=== PATIENT | male | born 2005 | race Caucasian/White ===

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

== ENCOUNTER 2024-02-02 12:49 | Outpatient (RCR) | payer MEDICAID, SELFPAY | END 2024-02-07 23:59 | disposition home or self-care (01) | LOC: SST 12:49 | PROVIDERS: PCP Family Medicine; Visit Provider Family Medicine | DX: F84.0 Autistic disorder (principal) | CPT/HCPCS: 92507 ==

== ENCOUNTER 2024-02-08 06:00 | Outpatient (RCR) | payer MEDICAID, SELFPAY | END 2024-03-09 23:59 | disposition home or self-care (01) | LOC: SST 06:00 | PROVIDERS: PCP Family Medicine; Visit Provider Family Medicine | DX: F84.0 Autistic disorder (principal) | CPT/HCPCS: 92507 ==

== ENCOUNTER 2024-03-10 06:00 | Outpatient (RCR) | payer MEDICAID, SELFPAY | END 2024-04-06 23:59 | disposition home or self-care (01) | LOC: SST 06:00 | PROVIDERS: PCP Family Medicine; Visit Provider Family Medicine | DX: F84.0 Autistic disorder (principal) | CPT/HCPCS: 92507 ==

== ENCOUNTER 2024-04-07 06:00 | Outpatient (RCR) | payer MEDICAID, SELFPAY | END 2024-05-07 23:59 | disposition home or self-care (01) | LOC: SST 06:00 | PROVIDERS: PCP Family Medicine; Visit Provider Family Medicine | DX: F84.0 Autistic disorder (principal) | CPT/HCPCS: 92507 ==

== ENCOUNTER 2024-04-07 06:30 | Outpatient (RCR) | payer MEDICAID, SELFPAY | END 2024-05-07 23:59 | disposition home or self-care (01) | LOC: SST 06:30 | PROVIDERS: PCP Family Medicine; Visit Provider Family Medicine | DX: F84.0 Autistic disorder (principal) | CPT/HCPCS: 92523 ==

== ENCOUNTER 2024-05-08 05:00 | Outpatient (RCR) | payer MEDICAID, SELFPAY | END 2024-06-06 23:59 | disposition home or self-care (01) | LOC: SST 05:00 | PROVIDERS: PCP Family Medicine; Visit Provider Family Medicine | DX: F84.0 Autistic disorder (principal) | CPT/HCPCS: 92507 ==

== ENCOUNTER 2024-06-07 05:00 | Outpatient (RCR) | payer MEDICAID, SELFPAY | END 2024-07-07 23:55 | disposition home or self-care (01) | LOC: SST 05:00 | PROVIDERS: PCP Family Medicine; Visit Provider Family Medicine | DX: F84.0 Autistic disorder (principal) | CPT/HCPCS: 92507 ==

== ENCOUNTER 2024-07-08 05:00 | Outpatient (RCR) | payer MEDICAID, SELFPAY | END 2024-08-06 23:59 | disposition home or self-care (01) | LOC: SST 05:00 | PROVIDERS: PCP Family Medicine; Visit Provider Family Medicine | DX: F80.9 Developmental disorder of speech and language, unspecified (principal) | CPT/HCPCS: 92507 ==

== ENCOUNTER 2024-08-07 05:00 | Outpatient (RCR) | payer MEDICAID, SELFPAY | END 2024-09-06 23:59 | disposition home or self-care (01) | LOC: SST 05:00 | PROVIDERS: Visit Provider Family Medicine | DX: F80.9 Developmental disorder of speech and language, unspecified (principal) | CPT/HCPCS: 92507 ==

== ENCOUNTER 2024-08-14 13:53 | Emergency (ER) | payer MEDICAID, SELFPAY ==
--- OUTSIDE RECORDS SUMMARY | 2024-08-14 14:00 | XMS_ITS | Encounter Summary ---
Author Organization [facility] Address [address] [place] [address] Care Team Providers Care Advertising Internship Name Role Phone Chika Miller MD Primary Care Provider +1- [phone] Encounter Details Date Type Department Care Team (Latest Contact Info) Description 09/05/2006 Outpatient Historical [facility] [address] [place] [address] [place] [address] [facility] [address] [place] [address] Unspecified Delay in Development (Primary Dx) Social History Tobacco Use Types Packs/Day Years Used Date Smoking Tobacco: Never Assessed Sex and Gender Information Value Date Recorded Sex Assigned at Not on file Legal 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
--- OUTSIDE RECORDS SUMMARY | 2024-08-14 14:00 | XMS_ITS | Clinical Summary ---
Author Organization [facility] Address [address] [place] [address] Care Team Providers Care Tare Weigher Name Role Phone Chika Miller MD Primary Care Provider +1- [phone] Allergies No known active allergies Medications polyethylene glycol 3350 (MIRALAX) 17 gram/dose Powder Take 17 Gram by mouth daily Dissolve in 8 ounces of fluid and drink entire liquid . Active montelukast (SINGULAIR) 5 mg Tablet, Chewable Take 5 mg by mouth daily. Active Active Problems Problem Noted Date Diagnosed Date PDD (pervasive developmental disorder) 9 Immunizations Immunization Administration Dates Next Due (M-M-R II/PRIORIX)(12 MO UP) MEASLES, MUMPS AND RUBELLA VIRUS VACCINE, 0.5 ML IM/SUBCUT 10/05/2005 (VARIVAX)(12 MOS UP)VARICELL A VIRUS VACCINE (PF) 0.5 ML, SUB CUT 10/05/2005 Dt Dtp Dtap Vaccine 10/05/2005, 5,2004,2004 HIB, Unspecified Formulation 07/06/2005,11/12/19 05,2004 Hepatitis A Vaccine 01/11/2006,07/06/2005 Hepatitis B Vaccine 01/05/2005, 5,2004,2004 IPV/OPV 01/05/2005,2004,2004 Influenza Seasonal Unspecifi ed Formulation IM 01/11/2006,01/05/2005 Pneumococcal 7-valent conjug ate vaccine IM 07/06/2005,01/05/2005,2004,2004 Family History Medical History Relation Name Comments Depression Father Other Father High Cholesterol Mother Relation Name Status Comments Father Alive Mother Alive Social History Tobacco Use Types Packs/Day Years Used Date Smoking Tobacco: Never Smokeless Tobacco: Never Sex and Gender Information Value Date Recorded Sex Assigned at Not on file Legal Sex Male 3:36 AM CONCERT PIANIST Gender Identity Not on file Sexual Orientation Not on file Last Filed Vital Signs Vital Sign Reading Time Taken Comments Blood Pressure 115/90 01/06/2016 3:06 PM CONCERT PIANIST Pulse 58 01/06/2016 3:06 PM CONCERT PIANIST Temperature 37.2 C (99 F) 03/04/2008 10:58 AM CONCERT PIANIST Respiratory Rate - - Oxygen Saturation - - Inhaled Oxygen Concentration - - Weight 49.4 kg (109 lb) 05/06/2016 11:42 AM CDT Height 154.9 cm (5' 1 ) 05/06/2016 11:42 AM CDT Body Mass Index 20.6 05/06/2016 11:42 AM CDT Plan of Treatment Health Maintenance Due Date Last Done Comments CHLAMYDIA SCREENING (ANNUAL) 11-24 YEARS 07/02/2015 DTAP/TDAP/TD VACCINES (5 - Tdap) 07/02/2015 10/05/2005, 01/05/2005, 2004, Additional history exists HPV VACCINES (1 - Male 3-dos e series) 07/02/2019 INFLUENZA VACCINE (#1) 2024 01/11/2006, 2004 HEPATITIS B VACCINES Completed 01/05/2005, 2004, 2004, Additional history exists Insurance MEDICAID [place] Care Teams Tare Weigher Relationship Specialty Start Date End Date Chika Miller MD [address] [place] [address] PCP - General Family Practice 09/12/15
--- OUTSIDE RECORDS SUMMARY | 2024-08-14 14:00 | XMS_ITS | Encounter Summary ---
Author Organization [facility] Address [address] [place] [address] Care Team Providers Care Pump House Engineer Name Role Phone Chika Miller MD Primary Care Provider +1- [phone] Encounter Details Date Type Department Care Team (Late st Contact Info) Description 07/05/2006 Outpatient Historical [facility] [place] [address] [place] [address] Bessie Toscano MD NO ADDRESS ON FILE Routine Child Health Exam (Primary Dx) Social History Tobacco Use Types Packs/Day Years Used Date Smoking Tobacco: Never Assessed Sex and Gender Information Value Date Recorded Sex Assigned at Not on file Legal Sex Male 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
--- OUTSIDE RECORDS SUMMARY | 2024-08-14 14:00 | XMS_ITS | Encounter Summary ---
Author Organization [facility] Address [address] [place] [address] Care Team Providers Care Kitchenhand Name Role Phone Chika Miller MD Primary Care Provider +1- [phone] Encounter Details Date Type Department Care Team (Late st Contact Info) Description 2004 Outpatient Historical [facility] [place] [address] [place] [address] Bessie Toscano MD NO ADDRESS ON FILE Routine child health exam (Primary Dx); VACCINE DIS COMBINATIONS NEC; VACCINE FOR H FLU TYPE B; VACCINE FOR STREP PNEUMONIAE Social History Tobacco Use Types Packs/Day Years Used Date Smoking Tobacco: Never Assessed Sex and Gender Information Value Date Recorded Sex Assigned at Not on file Legal Sex Male 3:36 AM CHILD CARE CENTER ASSISTANT DIRECTOR Gender Identity Not on file Sexual Orientation Not on file documented as of this encounter Plan of Treatment Not on file documented as of this encounter Visit Diagnoses Diagnosis Routine child health exam- Primary Routine or child health check Need for prophylactic vaccination and inoculation against other combinations of diseases Need for prophylactic vaccination against Hemophilus influenza type B (Hib) Need for prophylactic vaccination against Streptococcus pneumoniae (pneumococcus) Need for prophylactic vaccination against streptococcus pneumoniae (pneumococcus) documented in this encounter Care Teams Kitchenhand Relationship Specialty Start Date End Date Chika Miller MD [address] [place] [address] PCP - General Family Practice 09/12/15 documented as of this encounter
--- OUTSIDE RECORDS SUMMARY | 2024-08-14 14:00 | XMS_ITS | Encounter Summary ---
Author Organization [facility] Address [address] [facility] Attn: Epic Prelude ADT JOSE [place] [address] Care Team Providers Care Partition Setter Name Role Phone Chika Miller MD Primary Care Provider +1- [phone] Encounter Details Date Type Department Care Team (Late st Contact Info) Description 2004 Inpatient Historical Bessie Toscano MD NO ADDRESS ON FILE SINGL BORN IN HOSP-NO C/DELIVERY (Primary Dx) Social History Tobacco Use Types Packs/Day Years Used Date Smoking Tobacco: Never Assessed Sex and Gender Information Value Date Recorded Sex Assigned at Not on file Legal Sex Male 3: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 Gender Identity Not on file Sexual Orientation Not on file documented as of this encounter Plan of Treatment Not on file documented as of this encounter Procedures Procedure Name Priority Date/Time Associated Diagnosis Comments METABOLIC SCREEN Routine 2004 12:58 AM CDT POC GLUCOSE Routine 2004 5:06 PM CDT documented in this encounter Results * METABOLIC SCREEN (2004 12:58 AM CDT) PKU Sent to Reference Lab INTERFACE SYSTEM 2004 12:5 8 AM CDT us Bessie Toscano MD CHEMISTRY ORDERABLES Vannesa l Result INTERFACE SYSTEM Refer to clinic/hospital department * POC GLUCOSE (2004 5:06 PM CDT) GLUCOSE POC 58 50 - 80 mg/dL INTERFACE SYSTEM COMMENT POC Baby 1 Glucose INTERFACE SYSTEM 2004 5:06 PM CDT us Bessie Toscano MD POINT OF CARE TESTING Fin al Result INTERFACE SYSTEM Refer to clinic/hospital department documented in this encounter Visit Diagnoses Diagnosis Single liveborn, born in hospital, delivered without mention of delivery- Primary documented in this encounter Care Teams Partition Setter Relationship Specialty Start Date End Date Chika Miller MD [address] [place] [address] PCP - General Family Practice 09/12/15 documented as of this encounter
--- OUTSIDE RECORDS SUMMARY | 2024-08-14 14:00 | XMS_ITS | Clinical Summary ---
Author Organization [facility] Address [address] [address] [facility] [address] [place]: Epic Prelude ADT [place] [address] Care Team Providers Care Cash Office Worker Name Role Phone Chika Miller MD Primary Care Provider +1- [phone] Allergies No known active allergies Medications polyethylene glycol 3350 (MIRALAX) 17 gram/dose Powder Take 17 Gram by mouth daily Dissolve in 8 ounces of fluid and drink entire liquid . 09/09/2015 Active montelukast (SINGULAIR) 5 mg Tablet, Chewable Take 5 mg by mouth daily. 09/09/2015 Active Active Problems Problem Noted Date Diagnosed [...] Information Value Date Recorded Sex Assigned at Male 12/25/2023 11:01 AM PIPELINE SUPERINTENDENT Legal Sex Male 11:46 AM PIPELINE SUPERINTENDENT Gender Identity Male 12/25/2023 11:01 AM PIPELINE SUPERINTENDENT Sexual Orientation Not on file Last Filed Vital Signs Vital Sign Reading Time Taken Comments Blood Pressure 115/90 01/06/2016 3:06 PM PIPELINE SUPERINTENDENT Pulse 58 01/06/2016 3:06 PM PIPELINE SUPERINTENDENT Temperature - - Respiratory Rate - - Oxygen Saturation - [...] Completed 01/05/2005, 2004, 2004, Additional history exists Care Teams Cash Office Worker Relationship Specialty Start Date End Date Chika Miller MD [address] [place] [address] PCP - General Family Practice 09/12/15
--- OUTSIDE RECORDS SUMMARY | 2024-08-14 14:00 | XMS_ITS | Encounter Summary ---
Author Organization [facility] Address [address] [place] [address] Care Team Providers Care Wind Power Project Manager Name Role Phone Chika Miller MD Primary Care Provider +1- [phone] Encounter Details Date Type Department Care Team (Latest Contact Info) Description 2004 Outpatient Historical [facility] [place] [address] [facility] [address] [place] [address] Tacos Lindsay MD [address] [facility] [address] [place] [address] / JAUND NOS (Primary Dx) Social History Tobacco Use Types Packs/Day Years Used Date Smoking Tobacco: Never Assessed Sex and Gender Information Value Date Recorded Sex Assigned at Not on file Legal Sex 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
--- OUTSIDE RECORDS SUMMARY | 2024-08-14 14:00 | XMS_ITS | Encounter Summary ---
Author Organization [facility] Address [address] [place] [address] Care Team Providers Care Molder Offbearer Name Role Phone Chika Miller MD Primary Care Provider +1- [phone] Encounter Details Date Type Department Care Team (Late st Contact Info) Description 01/11/2006 Outpatient Historical [facility] Pediatrics- [place] [address] [place] [address] Bessie Toscano MD NO ADDRESS ON FILE Routine Child Health Exam (Primary Dx); Unspecified Otitis Media; Vaccine for viral hepatitis; Vaccine for influenza Social History Tobacco Use Types Packs/Day Years Used Date Smoking Tobacco: Never Assessed Sex and Gender Information Value Date Recorded Sex Assigned at Not on file Legal Sex Male 3:36 AM INVENTORY CONTROL SUPERVISOR Gender Identity Not on file Sexual Orientation Not on file documented as of this encounter Plan of Treatment Not on file documented as of this encounter Visit Diagnoses Diagnosis Routine child health exam- Primary Routine or child health check Unspecified otitis media Vaccine for viral hepatitis Need for prophylactic vaccination and inoculation against viral hepatitis Vaccine for influenza Need for prophylactic vaccination and inoculation against influenza documented in this encounter Care Teams Molder Offbearer Relationship Specialty Start Date End Date Chika Miller MD [address] [place] [address] PCP - General Family Practice 09/12/15 documented as of this encounter
--- OUTSIDE RECORDS SUMMARY | 2024-08-14 14:00 | XMS_ITS | Encounter Summary ---
Author Organization [facility] Address [address] [place] [address] Care Team Providers Care Senior Linux Systems Engineer Name Role Phone Chika Miller MD Primary Care Provider +1- [phone] Encounter Details Date Type Department Care Team (Late st Contact Info) Description 07/06/2005 Outpatient Historical [facility] Pediatrics- [place] [address] [place] [address] Bessie Toscano MD NO ADDRESS ON FILE Routine Child Health Exam (Primary Dx); Vaccine for viral hepatitis; Vaccin Hem Influenza B; Vaccin Strep Pneumoniae Social History Tobacco Use Types Packs/Day Years Used Date Smoking Tobacco: Never Assessed Sex and Gender Information Value Date Recorded Sex Assigned at Not on file 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 Gender Identity Not on file Sexual Orientation Not on file documented as of this encounter Plan of Treatment Not on file documented as of this encounter Visit Diagnoses Diagnosis Routine child health exam- Primary Routine or child health check Vaccine for viral hepatitis Need for prophylactic vaccination and inoculation against viral hepatitis Need for prophylactic vaccination against Hemophilus influenza type B (Hib) Need for prophylactic vaccination against Streptococcus pneumoniae (pneumococcus) Need for prophylactic vaccination against streptococcus pneumoniae (pneumococcus) documented in this encounter Care Teams Senior Linux Systems Engineer Relationship Specialty Start Date End Date Chika Miller MD [address] [place] [address] PCP - General Family Practice 09/12/15 documented as of this encounter
--- OUTSIDE RECORDS SUMMARY | 2024-08-14 14:00 | XMS_ITS | Encounter Summary ---
Author Organization [facility] Address [address] [place] [address] Care Team Providers Care Fitness Technician Name Role Phone Chika Miller MD Primary Care Provider +1- [phone] Encounter Details Date Type Department Care Team (Late st Contact Info) Description 01/05/2005 Outpatient Historical [facility] Pediatrics- [place] [address] [place] [address] Bessie Toscano MD NO ADDRESS ON FILE Routine child health exam (Primary Dx); Vaccine for influenza; VACCINE DIS COMBINATIONS NEC; VACCINE FOR STREP PNEUMONIAE Social History Tobacco Use Types Packs/Day Years Used Date Smoking Tobacco: Never Assessed Sex and Gender Information Value Date Recorded Sex Assigned at Not on file 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 Gender Identity Not on file Sexual Orientation Not on file documented as of this encounter Plan of Treatment Not on file documented as of this encounter Visit Diagnoses Diagnosis Routine child health exam- Primary Routine infant or child health check Vaccine for influenza Need for prophylactic vaccination and inoculation against influenza Need for prophylactic vaccination and inoculation against other combinations of diseases Need for prophylactic vaccination against Streptococcus pneumoniae (pneumococcus) Need for prophylactic vaccination against streptococcus pneumoniae (pneumococcus) documented in this encounter Care Teams Fitness Technician Relationship Specialty Start Date End Date Chika Miller MD [address] [place] [address] PCP - General Family Practice 09/12/15 documented as of this encounter
--- OUTSIDE RECORDS SUMMARY | 2024-08-14 14:00 | XMS_ITS | Encounter Summary ---
Author Organization [facility] Address [address] [place] [address] Care Team Providers Care Senior Planner Name Role Phone Chika Miller MD Primary Care Provider +1- [phone] Encounter Details Date Type Department Care Team (Late st Contact Info) Description 2004 Outpatient Historical [facility] Pediatrics- [place] [address] [place] [address] Bessie Toscano MD NO ADDRESS ON FILE Routine child health exam (Primary Dx) Social History Tobacco Use Types Packs/Day Years Used Date Smoking Tobacco: Never Assessed Sex and Gender Information Value Date Recorded Sex Assigned at Not on file 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
--- OUTSIDE RECORDS SUMMARY | 2024-08-14 14:00 | XMS_ITS | Encounter Summary ---
Author Organization [facility] Address [address] [place] [address] Care Team Providers Care Space Buyer Name Role Phone Chika Miller MD Primary Care Provider +1- [phone] Encounter Details Date Type Department Care Team (Latest Contact Info) Description 01/07/2007 Outpatient Historical [facility] Pediatrics- [place] [address] [place] [id number] Genet Armendariz [address] [facility] [address] [place] [address] Unspecified Otitis Media (Primary Dx) Social History Tobacco Use Types Packs/Day Years Used Date Smoking Tobacco: Never Assessed Sex and Gender Information Value Date Recorded Sex Assigned at Not on file 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
--- OUTSIDE RECORDS SUMMARY | 2024-08-14 14:00 | XMS_ITS | Encounter Summary ---
Author Organization [facility] Address [address] [place] [address] Care Team Providers Care Stevedore Hold Name Role Phone Chika Miller MD Primary Care Provider +1- [phone] Encounter Details Date Type Department Care Team (Late st Contact Info) Description 2004 Outpatient Historical [facility] Pediatrics- [place] [address] [place] [address] Bessie Toscano MD NO ADDRESS ON FILE Routine child health exam (Primary Dx); VACCINE DIS COMBINATIONS NEC; VACCINE FOR H FLU TYPE B; VACCINE FOR STREP PNEUMONIAE Social History Tobacco Use Types Packs/Day Years Used Date Smoking Tobacco: Never Assessed Sex and Gender Information Value Date Recorded Sex Assigned at Not on file 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
--- OUTSIDE RECORDS SUMMARY | 2024-08-14 14:00 | XMS_ITS | Encounter Summary ---
Author Organization [facility] Address [address] [place] [address] Care Team Providers Care Parole Officer Name Role Phone Chika Miller MD Primary Care Provider +1- [phone] Encounter Details Date Type Department Care Team (Late st Contact Info) Description 07/12/2006 Outpatient Historical [facility] Pediatrics- [place] [address] [place] [phone] Bessie Toscano MD NO ADDRESS ON FILE Diarrhea (Primary Dx) Social History Tobacco Use Types Packs/Day Years Used Date Smoking Tobacco: Never Assessed Sex and Gender Information Value Date Recorded Sex Assigned at Not on file 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
--- OUTSIDE RECORDS SUMMARY | 2024-08-14 14:00 | XMS_ITS | Encounter Summary ---
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 Gender Identity Not on file Sexual Orientation Not on file documented as of this encounter Plan of Treatment Not on file documented as of this encounter Procedures Procedure Name Priority Date/Time Associated Diagnosis Comments METABOLIC SCREEN Routine 2004 10:04 AM CDT documented in this encounter Results * METABOLIC SCREEN (2004 10:04 AM CDT) PKU Sent to Reference Lab INTERFACE SYSTEM 2004 10:0 4 AM CDT us Bessie Toscano MD CHEMISTRY ORDERABLES Vannesa brown Result INTERFACE SYSTEM Refer to clinic/hospital department documented in this encounter Visit Diagnoses Diagnosis Screening for phenylketonuria (PKU)- Primary documented in this encounter Care Teams Batch And Furnace Manager Relationship Specialty Start Date End Date Chika Miller MD [address] [place] [phone] PCP - General Family Practice 09/12/15 documented as of this encounter
--- OUTSIDE RECORDS SUMMARY | 2024-08-14 14:00 | XMS_ITS | Encounter Summary ---
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
--- OUTSIDE RECORDS SUMMARY | 2024-08-14 14:00 | XMS_ITS | Encounter Summary ---
Author Organization [facility] Address [address] [place] [address] Care Team Providers Care Director Of Integrated Marketing Name Role Phone Chika Miller MD Primary Care Provider +1- [phone] Encounter Details Date Type Department Care Team (Late st Contact Info) Description 11/05/2005 Outpatient Historical [facility] Pediatrics- [place] [address] [place] [address] Bessie Toscano MD NO ADDRESS ON FILE Failure to Thrive (Primary Dx) Social History Tobacco Use Types Packs/Day Years Used Date Smoking Tobacco: Never Assessed Sex and Gender Information Value Date Recorded Sex Assigned at Not on file Legal 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
--- OUTSIDE RECORDS SUMMARY | 2024-08-14 14:00 | XMS_ITS | Encounter Summary ---
Author Organization [facility] Address [address] [place] [address] Care Team Providers Care Call Centre Supervisor Name Role Phone Chika Miller MD Primary Care Provider +1- [phone] Encounter Details Date Type Department Care Team (Late st Contact Info) Description 10/05/2005 Outpatient Historical [facility] Pediatrics- [place] [address] [place] [address] Bessie Toscano MD NO ADDRESS ON FILE Routine Child Health Exam (Primary Dx); Vaccin for Dtp; Rgn-Ignsbg-Kljad-Ru leeanne; Vaccine for Varicella Social History Tobacco Use Types Packs/Day Years Used Date Smoking Tobacco: Never Assessed Sex and Gender Information Value Date Recorded Sex Assigned at Not on file 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 Gender Identity Not on file Sexual Orientation Not on file documented as of this encounter Plan of Treatment Not on file documented as of this encounter Visit Diagnoses Diagnosis Routine child health exam- Primary Routine infant or child health check Need for prophylactic vaccination with combined xvsfzicnor-goeyqow-jxcmropii (DTP) vaccine Need for prophylactic vaccination with uykoeny-krejg-wttlcjx (MMR) vaccine Vaccine for varicella Need for prophylactic vaccination and inoculation against varicella documented in this encounter Care Teams Call Centre Supervisor Relationship Specialty Start Date End Date Chika Miller MD [address] [place] [address] PCP - General Family Practice 09/12/15 documented as of this encounter
--- OUTSIDE RECORDS SUMMARY | 2024-08-14 14:00 | XMS_ITS | Encounter Summary ---
Author Organization [facility] Address [address] [place] [address] Care Team Providers Care Steam Table Associate Name Role Phone Chika Miller MD Primary Care Provider +1- [phone] Encounter Details Date Type Department Care Team (Late st Contact Info) Description 09/13/2006 Outpatient Historical [facility] Pediatrics- [place] [address] [place] [address] Bessie Toscano MD NO ADDRESS ON FILE Diarrhea (Primary Dx); Splenomegaly Social History Tobacco Use Types Packs/Day Years Used Date Smoking Tobacco: Never Assessed Sex and Gender Information Value Date Recorded Sex Assigned at Not on file Legal 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
--- OUTSIDE RECORDS SUMMARY | 2024-08-14 14:00 | XMS_ITS | Encounter Summary ---
Author Organization [facility] Address [address] [place] [address] Care Team Providers Care Mold Engraver Name Role Phone Chika Miller MD Primary Care Provider +1- [phone] Encounter Details Date Type Department Care Team (Late st Contact Info) Description 01/25/2006 Outpatient Historical [facility] Pediatrics- [place] [address] [place] [phone] Bessie Toscano MD NO ADDRESS ON FILE Unspecified Otitis Media (Primary Dx) Social History Tobacco Use Types Packs/Day Years Used Date Smoking Tobacco: Never Assessed Sex and Gender Information Value Date Recorded Sex Assigned at Not on file 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
--- OUTSIDE RECORDS SUMMARY | 2024-08-14 14:00 | XMS_ITS | Encounter Summary ---
Author Organization [facility] Address [address] [place] [address] Care Team Providers Care Superintendent Job Name Role Phone Chika Miller MD Primary Care Provider +1- [phone] Encounter Details Date Type Department Care Team (Late st Contact Info) Description 04/06/2005 Outpatient Historical [facility] Pediatrics- [place] [address] [place] [address] Bessie Toscano MD NO ADDRESS ON FILE Routine child health exam (Primary Dx) Social History Tobacco Use Types Packs/Day Years Used Date Smoking Tobacco: Never Assessed Sex and Gender Information Value Date Recorded Sex Assigned at Not on file 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
[2024-08-14 14:04] VITALS: BP 125/80; PULSE 95; TEMP 36.7; O2SAT 99; BMI 30.1
--- NOTE | 2024-08-14 15:17 | W.ED.ABDPA2 ---
HPI - Abdominal Pain General: Chief Complaint: Abdominal Pain Stated Complaint: abd pain Time Seen by Provider: 08/14/24 15:07 Source: family Mode of arrival: ambulatory Limitations: physical limitation History of Present Illness: Patient is a 19-year-old autistic nonverbal male here with his parents for concern of possible abdominal pain. Mother states they noticed a small episode where the patient seemed to be clutching his abdomen this morning which is abnormal for him. He has not had any more episodes of this behavior. Parents state he is overall acting normally. He ate breakfast and lunch normally. He has not had any vomiting. No fevers. Patient struggles with chronic constipation and does follow-up with a GI specialist in [place]. elicited complaint: abdominal pain (possible?) Pertinent past history: constipation Onset (ago): hour(s) Pain Consistency: other (unknown-pt non verbal) Location: Other (unknown) Associated Symptoms: Reports no associated symptoms and constipation (chronic); Denies fever(s), hematochezia, melena, syncope and vomiting Related Data Home Medications ?Medication ?Instructions ?Recorded ?Confirmed polyethylene glycol 3350 17 PO 02/12/21 10/03/22 gram/dose oral powder (Miralax) montelukast 10 mg tablet 10 mg PO DAILY 10/03/22 10/03/22 (Singulair) Previous Rx's ?Medication ?Instructions ?Recorded diphenhydramine HCl 12.5 mg/5 mL 50 mg (20 mL) PO Q8H PRN itching 10/03/22 oral elixir #500 mL famotidine 40 mg/5 mL (8 mg/mL) 5 ml PO BID 5 days #50 mL 10/03/22 oral suspension prednisolone 15 mg/5 mL oral 60 mg (20 mL) PO DAILY 5 days #100 10/03/22 solution mL Allergies Allergy/AdvReac Type Severity Reaction Status Date / Time No Known Allergies Allergy Verified 08/14/24 14:11 Review of Systems General: Reports: ROS unobtainable due to medical condition, ROS unobtainable due to mental status and Other (answers provided by mother) Const: Denies: fever(s) Card: Denies: edema, swelling of feet/ankles, syncope or pre-syncope Resp: Denies: productive cough, non-productive cough or chest congestion GI: Reports: constipation (chronic); Denies: vomiting, hematochezia or melena : Reports: other (no change in urination) Skin/Breast: Denies: rash Neuro: Reports: other (normal mental status per parents) COUNTS INCLUDE 234 BEDS AT THE [facility] ED PFSH: Medical History Autism Surgical History No history of previous surgery Social History Smoking and tobacco/nicotine status: never used tobacco/nicotine Physical Exam Const: COMMON NORMALS: no acute distress, average body habitus, healthy appearing, alert and well nourished EXAM LIMITATIONS: physical limitations GENERAL APPEARANCE: cooperative HENMT: COMMON NORMALS: normocephalic and atraumatic HEAD & SCALP: normal to inspection, normocephalic and atraumatic Eye: COMMON NORMALS: no scleral icterus Resp: COMMON NORMALS: normal respiratory effort and clear to auscultation bilaterally AUSCULTATION: clear to auscultation bilaterally Cardio: COMMON NORMALS: regular rate and regular rhythm RATE: regular rate RHYTHM: regular rhythm GI: COMMON NORMALS: Normal to inspection, nondistended, normoactive bowel sounds present, Soft to palpation, non-tender (pt does not seemingly grimace or appear to be in discomfort), No hepatosplenomegaly present and no masses INSPECTION: Yes normal to inspection AUSCULTATION: Yes Hypoactive bowel sounds present PALPATION: Yes Soft to palpation and Yes No hepatosplenomegaly present Back/Pelvis: COMMON NORMALS: thoracic and lumbar spine normal to inspection Extremity: GENERAL: Yes normal exam except as noted Neuro: SENSORIUM/ORIENTATION: Yes alert Course Vital Signs: Vital signs: Vital Signs Temperature 98.1 F 08/14/24 14:04 Pulse Rate 72 08/14/24 17:02 Respiratory Rate 18 08/14/24 16:01 Blood Pressure 140/83 08/14/24 16:01 Pulse Oximetry 99 08/14/24 17:02 Oxygen Delivery Me thod Room Air 08/14/24 16:01 MDM - Abdominal Pain Medical Decision Making Patient seemingly has been in no acute distress throughout his emergency department stay. His vital signs are completely normal. Blood work Is completely unremarkable. Abdomen seemingly nontender during palpation. Obviously there are some limitations on his exam as he is nonverbal. Abdominal XR showing prominent constipation. I do not feel he has a surgical abdomen. Parents feel comfortable taking him home with close observation. Return to ED precautions discussed. Medical Records I reviewed the patient's medical records. Lab Data I reviewed the patient's lab results. 08/14/24 15:11 08/14/24 15:11 Labs/Radiology: Radiology Impressions Abdomen X-Ray 08/14/24 15:53 IMPRESSION: Prominent constipation Laboratory Results WBC 8.72 10^3/uL (4.5-13.0) 08/14/24 15:11 RBC 5.05 10^6/uL (3.85-5.65) 08/14/24 15:11 Hgb 15.60 g/dL (13.2-15.6) 08/14/24 15:11 Hct 48.0 % (37-53) 08/14/24 15:11 MCV 95.0 fl (82-101) 08/14/24 15:11 MCH 30.9 pg (27-33) 08/14/24 15:11 MCHC 32.5 g/dL (30-55) 08/14/24 15:11 RDW 13.1 % (12.1-15.1) 08/14/24 15:11 Plt Count 259 10^3/cmm (157-399) 08/14/24 15:11 MPV 10.9 fL (7.4-10.4) H 08/14/24 15:11 Neut % (Auto) 64.8 % 08/14/24 15:11 Lymph % (Auto) 21.9 % 08/14/24 15:11 Brown % (Auto) 10.8 % 08/14/24 15:11 Eos % (Auto) 1.7 % 08/14/24 15:11 Baso % (Auto) 0.5 % 08/14/24 15:11 Neut # (Auto) 5.65 10^3/uL (1.8-8.0) 08/14/24 15:11 Lymph # (Auto) 1.9 10^3/uL (1.5-6.5) 08/14/24 15:11 Brown # (Auto) 0.9 10^3/uL (0.2-0.9) 08/14/24 15:11 Eos # (Auto) 0.2 10^3/uL (0.0-0.8) 08/14/24 15:11 Baso # (Auto) 0.0 10^3/uL (0.0-0.1) 08/14/24 15:11 Nucleated RBC % (auto) 0 % 08/14/24 15:11 Nucleated RBCs # 0.0 /100WBC 08/14/24 15:11 Sodium 139 mmol/L (136-145) 08/14/24 15:11 Potassium 3.9 mmol/L (3.5-5.1) 08/14/24 15:11 Chloride 105 mmol/L (98-107) 08/14/24 15:11 Carbon Dioxide 21 mmol/L (22-29) L 08/14/24 15:11 Anion Gap 16.9 (5-19) 08/14/24 15:11 BUN 19 mg/dL (6-20) 08/14/24 15:11 Creatinine 0.7 mg/dL (0.7-1.2) 08/14/24 15:11 GFR Calculation 143.8 mL/min (90-130) H 08/14/24 15:11 Glucose 84 mg/dL (65-115) 08/14/24 15:11 Calculated Osmolality 289 mOsm/kg (285-295) 08/14/24 15:11 Calcium 9.7 mg/dL (8.5-10.5) 08/14/24 15:11 Total Bilirubin 0.6 mg/dL (0.15-1.2) 08/14/24 15:11 AST 25 U/L (0-40) 08/14/24 15:11 ALT 65 U/L (0-41) H 08/14/24 15:11 Alkaline Phosphatase 79 U/L (40-130) 08/14/24 15:11 Total Protein 7.5 g/dL (6.6-8.7) 08/14/24 15:11 Albumin 4.7 g/dL (3.5-5.2) 08/14/24 15:11 Globulin 2.8 g/dL (1.3-4.6) 08/14/24 15:11 Lipase 20 U/L (13-60) 08/14/24 15:11 Urine Color [place] (Yellow) A 08/14/24 16:00 Urine Appearance Clear (CLEAR) 08/14/24 16:00 Urine pH 7.5 (5-7) 08/14/24 16:00 Ur Specific [place] 1.021 (1.005-1.030) 08/14/24 16:00 Urine Protein Negative (Negative) 08/14/24 16:00 Urine Glucose (UA) Negative (Normal) 08/14/24 16:00 Urine Ketones Negative (Negative) 08/14/24 16:00 Urine Blood Negative (Negative) 08/14/24 16:00 Urine Nitrate Negative (Negative) 08/14/24 16:00 Urine Bilirubin Negative (Negative) 08/14/24 16:00 Urine Urobilinogen 2.0 mg/dL (Negative) H 08/14/24 16:00 Ur Leukocyte Esterase Negative (Negative) 08/14/24 16:00 Urine RBC 0-2 /hpf (0-2) 08/14/24 16:00 Urine WBC 0-5 /hpf (0-5) 08/14/24 16:00 Ur Squamous Epith Cells 0-5 /hpf (0-5) 08/14/24 16:00 Amorphous Sediment Not Reportable 08/14/24 16:00 Urine Bacteria None seen /hpf (NONE) 08/14/24 16:00 Hyaline Casts 0-4 /lpf H 08/14/24 16:00 All radiology interpretation(s) finalized by discharge Discharge Plan Discharge Patient Disposition: Home Clinical Impression: Chronic constipation Condition: Stable Prescriptions: No Action polyethylene glycol 3350 [Miralax] 17 gram/dose powder PO montelukast [Singulair] 10 mg tablet 10 mg PO DAILY diphenhydramine HCl 12.5 mg/5 mL elixir 50 mg PO Q8H PRN (Reason: itching) Qty: 500 0RF prednisolone 15 mg/5 mL solution 60 mg PO DAILY 5 Days Qty: 100 0RF famotidine 40 mg/5 mL (8 mg/mL) suspension 5 ml PO BID 5 Days Qty: 50 0RF Discharge Orders: Discharge ED (Routine); Ordered 08/14/24 Ordered By: Isabella Shipley Patient Instructions: Constipation (DC), Patient Portal & [place] Instructions Activity Restrictions/Additional Instructions: As we discussed, his blood work here was overall unremarkable. His UA did not indicate infection. X-ray of his abdomen showing chronic constipation. At this time I do not feel we need to proceed with emergent CT imaging. As we discussed, I would like you to seek medical reevaluation for any further symptoms if you were to develop such as frequent vomiting, fevers, lethargy, abnormal behaviors, or any other concerns you may have. We discussed enema/suppository options at home to help with constipation. Print Language: Jordanian Coding Level of Care Code ED [employer] for [employer] Hedrick
[2024-08-14 15:21] LABS: Hematocrit 48.0 % (37-53); Hemoglobin 15.60 g/dL (13.2-15.6); Mean Corpuscular HGB Conc 32.5 g/dL (30-55); Mean Corpuscular Hemoglobin 30.9 pg (27-33); Mean Corpuscular Volume 95.0 fl (82-101); Nucleated Red Blood Cells % 0 %; Platelet Count 259 10^3/cmm (157-399); Red Blood Count 5.05 10^6/uL (3.85-5.65); White Blood Count 8.72 10^3/uL (4.5-13.0)
[2024-08-14 15:43] LABS: Alanine Aminotransferase 65 U/L (0-41); Albumin Level 4.7 g/dL (3.5-5.2); Alkaline Phosphatase 79 U/L (40-130); Anion Gap 16.9 (5-19); Aspartate Amino Transferase 25 U/L (0-40); Blood Urea Nitrogen 19 mg/dL (6-20); Calcium 9.7 mg/dL (8.5-10.5); Carbon Dioxide 21 mmol/L (22-29); Chloride 105 mmol/L (98-107); Creatinine Clr Calc Pharmacy 189.1267; Globulin 2.8 g/dL (1.3-4.6); Glucose 84 mg/dL (65-115); Lipase 20 U/L (13-60); Osmolality Calculated 289 mOsm/kg (285-295); Potassium 3.9 mmol/L (3.5-5.1); Sodium 139 mmol/L (136-145); Total Protein 7.5 g/dL (6.6-8.7)
--- NOTE | 2024-08-14 15:53 | XRR_ITS ---
PROCEDURE INFORMATION: Exam: XR Abdomen Exam date and time: 08/14/2024 3:58 PM Age: 19 years old Clinical indication: Constipation; Abdominal pain TECHNIQUE: Imaging protocol: Radiologic exam of the abdomen. Views: 2 Views. Upright and supine views. COMPARISON: CR XR KUB [id number] 10/27/2022 4:12 PM FINDINGS: Gastrointestinal tract: There is a prominent collection of stool within the rectum causing mild rectal distension. No other bowel distension noted. Intraperitoneal space: Normal. No free air. Bones/joints: Unremarkable for age. XR/XR abdomen min 2V [id number] IMPRESSION: Prominent constipation
[2024-08-14 16:01] VITALS: BP 140/83; PULSE 90; RESP 18; O2SAT 99
[2024-08-14 16:09] LABS: Glucose Urine UA Negative (Normal); Nitrate Urine Negative (Negative); Specific Gravity, Urine 1.021 (1.005-1.030)
[2024-08-14 16:14] LABS: Add Urine Microscopic? YES
[2024-08-14 17:02] VITALS: PULSE 72; O2SAT 99
== END 2024-08-14 17:03 | disposition home or self-care (01) ==
PROVIDERS: Emergency Medicine; Emergency Provider Physician Assistant
DX: K59.09 Other constipation (principal)
CPT/HCPCS: 36415; 74019; 80053; 81001; 83690; 85025; 99284

== ENCOUNTER 2024-09-07 05:00 | Outpatient (RCR) | payer MEDICAID, SELFPAY | END 2024-10-07 23:59 | disposition home or self-care (01) | LOC: SST 05:00 | PROVIDERS: Visit Provider Family Medicine | DX: F80.9 Developmental disorder of speech and language, unspecified (principal) | CPT/HCPCS: 92507 ==

== ENCOUNTER 2024-10-08 05:00 | Outpatient (RCR) | payer MEDICAID, SELFPAY | END 2024-11-06 23:59 | disposition home or self-care (01) | LOC: SST 05:00 | PROVIDERS: Visit Provider Family Medicine | DX: F80.9 Developmental disorder of speech and language, unspecified (principal) | CPT/HCPCS: 92507 ==

== ENCOUNTER 2024-11-07 05:00 | Outpatient (RCR) | payer MEDICAID, SELFPAY | END 2024-12-07 23:59 | disposition home or self-care (01) | LOC: SST 05:00 | PROVIDERS: PCP Family Medicine; Visit Provider Family Medicine | DX: F80.9 Developmental disorder of speech and language, unspecified (principal) | CPT/HCPCS: 92507 ==

== ENCOUNTER → 2024-11-19 09:06 | Outpatient (BNVA) | payer MEDICAID, SELFPAY | PROVIDERS: PCP Family Medicine; Visit Provider Family Medicine | DX: Z51.81 Encounter for therapeutic drug level monitoring (principal); R53.83 Other fatigue; R53.81 Other malaise; Z13.1 Encounter for screening for diabetes mellitus | CPT/HCPCS: 80053; 80061; 83036; 84439; 84443; 85025 ==

== ENCOUNTER 2024-12-08 05:00 | Outpatient (RCR) | payer MEDICAID, SELFPAY | END 2025-01-06 23:59 | disposition home or self-care (01) | LOC: SST 05:00 | PROVIDERS: PCP Family Medicine; Visit Provider Family Medicine | DX: F80.9 Developmental disorder of speech and language, unspecified (principal) | CPT/HCPCS: 92507 ==

== ENCOUNTER 2025-01-07 05:00 | Outpatient (RCR) | payer MEDICAID, SELFPAY | END 2025-02-06 23:59 | disposition home or self-care (01) | LOC: SST 05:00 | PROVIDERS: PCP Family Medicine; Visit Provider Family Medicine | DX: F80.9 Developmental disorder of speech and language, unspecified (principal) | CPT/HCPCS: 92507 ==